=== PATIENT | female | born 1950 | race Caucasian/White ===

== ENCOUNTER → 2019-11-30 | Outpatient (CLI) | payer MEDICARE, OTHER | END | disposition home or self-care (01) | LOC: CFH 09:00 | PROVIDERS: ATTEND Internal Medicine Cardiovascular Disease | DX: J98.4 Other disorders of lung (principal); R06.02 Shortness of breath; F17.211 Nicotine dependence, cigarettes, in remission | CPT/HCPCS: 71250 ==

== ENCOUNTER → 2019-12-03 | Outpatient (CLI) | payer MEDICARE, OTHER | END | disposition home or self-care (01) | LOC: CARD 12:09 | PROVIDERS: ATTEND Internal Medicine Cardiovascular Disease | DX: R06.02 Shortness of breath (principal); F17.211 Nicotine dependence, cigarettes, in remission | CPT/HCPCS: 94060; 94726; 94729 ==

== ENCOUNTER → 2019-12-11 | Outpatient (CLI) | payer MEDICARE, OTHER | END | disposition home or self-care (01) | LOC: RAD 08:20 | PROVIDERS: ATTEND Internal Medicine Cardiovascular Disease | DX: R07.9 Chest pain, unspecified (principal); R06.02 Shortness of breath; R06.00 Dyspnea, unspecified; F17.211 Nicotine dependence, cigarettes, in remission | CPT/HCPCS: 71045; 78582; A9540; A9558 ==

== ENCOUNTER 2021-07-12 07:48 | Outpatient (CLI) | payer MEDICARE, OTHER | END 2021-07-12 23:59 | disposition home or self-care (01) | LOC: CFH 07:48 | PROVIDERS: ATTEND Internal Medicine Cardiovascular Disease | DX: J98.4 Other disorders of lung (principal); R06.02 Shortness of breath | CPT/HCPCS: 71250 ==